=== PATIENT | female | born 1945 ===

== ENCOUNTER 2017-07-07 06:08 | Day surgery (SDC) | payer MEDICARE ==
[2017-06-17 09:39] VITALS: BMI 23.6
[2017-07-07] MEDS ORDERED: Etomidate 20 mg/10ml Inj IV ONE (07:04)
[2017-07-07] MEDS ORDERED: Propofol 10 mg/ml Inj (20 ML) ONE ×5 (07:04→09:54)
[2017-07-07] MEDS ORDERED: Dexamethasone 4 mg/1 ml ONE (07:19)
[2017-07-07] MEDS ORDERED: Bupivacaine 0.5% Inj(30mL) ONE (07:19)
[2017-07-07] MEDS ORDERED: Midazolam 2 MG/2 ML VIAL ONE (07:34)
--- NOTE | 2017-07-07 10:29 | RAD ---
PROCEDURE: Fluoroscopy less than 1 hour HISTORY: LT BUNIONECTOMY COMPARISON: TECHNIQUE: Fluoroscopy was provided in the operating room. 13 seconds of fluoro time was used. Five images were submitted showing placement of hardware at the base of the 1st metatarsal and cuneiform FINDINGS: As above IMPRESSION: As above
--- NOTE | 2017-07-07 10:38 | PCM.SURG1 ---
Surgeon's Initial Post Op Note - Surgeon's Notes Surgeon: Dr. Frank Maria Brilliandeer Looper: Trina PGy-2, Daryl PGY-1 Type of Anesthesia: IV Sedation, Local Anesthesia Administered By: Ibrahima Pre-Operative Diagnosis: left foot hallux valgus deformity, 2nd digit hammertoe deformity Operative Findings: see dictation. 2 BME matt. 2-0 vicryl, 4-0 vicryl, 4-0 nylon Post-Operative Diagnosis: same Operation Performed: left foot lapidus bunionectomy with staple fixation. left foot 2nd digit hammertoe correction Specimen/Specimens Removed: bone soft tissue Estimated Blood Loss: EBL {In ML}: 5 Blood Products Given: N/A Drains Used: No Drains Post-Op Condition: Good Date of Surgery/Procedure: 07/07/17 Time of Surgery/Procedure: 09:00
[2017-07-07] MEDS ORDERED: Oxycodone/Acetaminophen 5/325 mg Tab PO PRN ×2 (10:39)
[2017-07-07 11:00] VITALS: TEMP 98.1
[2017-07-07] MEDS ORDERED: HYDROmorphone 0.5 mg/0.5 ml ISec IVP PRN ×2 (11:09→11:15)
[2017-07-07] MEDS ORDERED: Lactated Ringer's 1,000 ML IV SCH (11:15)
--- NOTE | 2017-07-07 11:53 | RAD ---
PROCEDURE: Left Foot Radiographs. HISTORY: s/p left foot surgery COMPARISON: None. FINDINGS: BONES: The film was obtained through plaster cast. There is a pin running longitudinally through the 2nd toe. Hardware is seen at the base of the 1st metatarsal and cuneiform JOINTS: Normal. SOFT TISSUES: Normal. OTHER FINDINGS: None. IMPRESSION: Postop changes with no complicating factors.
[2017-07-07 12:20] VITALS: BP 165/66; PULSE 64; RESP 18; O2SAT 95
--- NOTE | 2017-07-08 05:01 | OP ---
PROCEDURE DATE: 07/07/2017 PREOPERATIVE DIAGNOSES: 1. Left foot hallux valgus deformity. 2. Left foot second digit hammer toe deformity. POSTOPERATIVE DIAGNOSES: 1. Left foot hallux valgus deformity. 2. Left foot second digit hammer toe deformity. PROCEDURE: 1. Left foot Lapidus first metatarsal-cuneiform arthrodesis with the use of staple fixation. 2. Left foot surgical treatment of hammer toe deformity of second digit with K-wire fixation, and tenotomy and capsulotomy of the second metatarsophalangeal joint. SURGEON: Frank Maria DPM SWITCH MAKER: Brianne Mena DPM, PGY-2, Sushil Brito DPM, PGY-1. ANESTHESIA ADMINISTERED BY: Raul Alexandra MD. TYPE OF ANESTHESIA: IV sedation with local. INDICATION: The patient is a 71-year-old female with the above mentioned diagnoses. The patient has exhausted multiple forms of conservative treatment at this time and now requested surgical intervention. The patient signed the consent after careful explanation of risks, benefits, complications, and alternatives for surgical procedure. No guarantees were given nor implied. PREPARATION: The patient was brought in to the operating room and placed on the operating room table in a supine position. Time-out was performed for identification of the correct patient and procedure. The patient received a total of 20 mL of 0.5% Marcaine plain in a local block type fashion to the left foot. Once local anesthesia was achieved, the left foot was then prepped and draped in normal sterile manner and the procedure begun. PROCEDURE #1: Attention was directed to the dorsal aspect of the first metatarsal head of the left foot, where an approximately 9 cm linear longitudinal incision was made medial and parallel to the tendon of the extensor hallucis longus involving the contour of the deformity, just proximal to metatarsocuneiform joint, and extended just distal to the base of the proximal phalanx. The incision was deepened through the subcutaneous tissue, with care being taken to identify and retract all vital neurovascular structures. All bleeders were cauterized and ligated as necessary. Attention was then directed to the first interspace at the original incision where the tendon of the extensor hallucis brevis was identified and tenectomized. Dissection was continued deep using blunt dissection down to the level of sesamoid, which was freed of its soft tissue attachments proximally, laterally, and distally. The conjoint tendon of the adductor hallucis muscle was then identified and transected at its attachments to the base of the proximal phalanx of the hallux. At this time, the lateral contracture present on the hallux was noted to be reduced and the sesamoid apparatus was noted in a more corrected medial position. At this time, a linear capsulotomy was performed over the dorsal aspect of the first metatarsophalangeal joint. The periosteal and capillary structures were then carefully dissected free of their osseous attachments and reflected medially and laterally thus exposing the head of the first metatarsal into the operative site. Next, using a sagittal saw, the medial prominence was resected and passed from the operative field and sent to pathology. At this time attention was directed more proximally to the metatarsocuneiform joint which was freed of all of its ligamentous attachments and periosteal structures and attachments. Once the base of first metatarsal was freed, a 0.062 inch K-wire was driven from dorsal to plantar on the first metatarsal and held for temporary fixation, and another 0.062 inch K-wire was driven dorsal to planar in the medial cuneiform for the temporary fixation and for the use of Hintermann retractor. Next, the metatarsocuneiform joint was distracted, and using a sagittal saw, the articular cartilage off of the base of the first metatarsal was resected and passed off of the operative field and sent to pathology. Next, the lateral aspect of the base of first metatarsal was resected using a sagittal saw and passed off of the operative field. Next, the distal articular cartilage of the medial cuneiform was resected with care to take more off laterally than medially. The joint was assessed at the time and there was no remaining articular cartilage to be noted. The incision site was then copiously irrigated with sterile normal saline. The temporary fixation was then removed and another 0.045 inch K-wire was driven from the base of the first metatarsal to the medial cuneiform for temporary compression. Next, with standard AO principles and technique, a BME Nitinol 4-prong staple was inserted medially across the joint measuring 25 mm x 20 mm, and another BME Nitinol 2-prong staple measuring 18 mm x 18 mm was inserted dorsally across the metatarsocuneiform joint to allow for compression. The joint was assessed at the time and correction was noted to be excellent. The incision site was then copiously irrigated with sterile normal saline and the subcutaneous tissue was reapproximated with 2-0 Vicryl and 4-0 Vicryl, and the skin was reapproximated with 4-0 nylon. PROCEDURE #2: Attention was then directed to the dorsal aspect of the second digit of the left foot, where a linear longitudinal incision was made overlying the proximal interphalangeal joint of the second digit. The incision was deepened through the subcutaneous tissue, care being taken to identify and retract all vital neurovascular structures. All bleeders were cauterized and ligated as necessary. At this time, a transverse tenotomy and capsulotomy was performed to the proximal interphalangeal joint of the second digit of the left foot. The head of the proximal phalanx was then freed of its capsular and ligamentous attachments. Next, utilizing a sagittal saw, the head of the proximal phalanx was resected and passed from the operative field. Next, using a rongeur, the articular cartilage off of the middle phalanx of the second digit was then resected and passed off of the operative field. The wound was then flushed with copious amounts of sterile normal saline. Next, a 0.045 inch K-wire was driven from the base of the middle phalanx and exited at the distal aspect of the second digit. The K-wire was then retrograded proximally into the remaining aspect of the proximal phalanx. Correction of the deformity was assessed at this time and noted to be excellent. Next, a tenotomy and capsulotomy of the second metatarsophalangeal joint and the extensor tendon was performed with a #15 blade. The subcutaneous tissue was then reapproximated with 4-0 Vicryl and the skin was reapproximated with 4-0 nylon. I just want to make note that in the first procedure, the temporary 0.045 inch K-wire that was inserted across the joint was then removed prior to staple fixation. A postoperative injection of 10 mL of 0.5% Marcaine plain was given in a local block type fashion to the left foot. Postoperative bandage included Betadine-soaked Adaptic, 4 x 4 gauze, [place], Kerlix, Webril, Tj and a posterior splint. POSTOPERATIVE CONDITION: The patient tolerated the anesthesia and the procedure well, and was escorted to the recovery room with vital signs stable and neurovascular status intact to the left foot. The patient will follow up with Dr. Maria in his office on an outpatient basis. Brianne Mena DPM Frank Maria DPM
== END 2017-07-07 14:40 | disposition home or self-care (01) ==
LOC: SDS 06:08
PROVIDERS: ATTEND Podiatrist
DX: M20.12 Hallux valgus (acquired), left foot (principal); M20.42 Other hammer toe(s) (acquired), left foot
CPT/HCPCS: 28285; 28297; 73630; 76000; 88304; 88311; 97116; G8978; G8979; G8980; J0131; J1100; J1170; J2001; J2250; J2405; J2704; J3010; J7120

== ENCOUNTER 2018-03-09 06:06 | Day surgery (SDC) | payer MEDICARE ==
[2018-03-01 08:32] VITALS: BMI 24.5
[2018-03-09] MEDS ORDERED: Lidocaine 1% Inj (20ml) ONE (07:31)
[2018-03-09] MEDS ORDERED: Bupivacaine 0.5% 50 ML IJ ONE (07:31)
[2018-03-09] MEDS ORDERED: Propofol 10 mg/ml Inj (20 ML) ONE (07:41)
[2018-03-09] MEDS ORDERED: Etomidate 20 mg/10ml Inj IV ONE (07:41)
[2018-03-09] MEDS ORDERED: Sevoflurane - Inhalation Anesthetic Liq (250 ml) ONE (07:54)
[2018-03-09] MEDS ORDERED: HYDROmorphone 0.5 mg/0.5 ml ISec IVP PRN (09:43)
[2018-03-09] MEDS ORDERED: Lactated Ringer's 1,000 ML IV SCH (09:45)
--- NOTE | 2018-03-09 09:45 | PCM.SURG1 ---
Surgeon's Initial Post Op Note - Surgeon's Notes Surgeon: Dr. Maria [employer] Ceo: Gaby Brito PGY2, Carl Dial PGY1 Type of Anesthesia: IV Sedation, Local (15cc 1:1 mixture 1% lidocaine & 0.5% marcaine) Anesthesia Administered By: Dr. Brush Pre-Operative Diagnosis: Left iatrogenic hallux varus Operative Findings: See operative report. Materials: Arthrex mini TightRope, 2- 0 vicryl, 4-0 vicryl, 4-0 nylon. Injectables: 10cc 1:1 mixture 1% lidocaine & 0.5% marcaine Post-Operative Diagnosis: Same Operation Performed: Left foot hallux varus repair with medial release and repair of lateral collateral ligaments with Arthrex mini TightRope Specimen/Specimens Removed: None Estimated Blood Loss: EBL {In ML}: 1 Blood Products Given: N/A Drains Used: No Drains Post-Op Condition: Good Date of Surgery/Procedure: 03/09/18 Time of Surgery/Procedure: 09:45
[2018-03-09] MEDS ORDERED: Oxycodone/Acetaminophen 5/325 mg Tab PO PRN ×2 (09:46)
[2018-03-09 10:52] VITALS: RESP 18; TEMP 98.2
[2018-03-09 12:07] VITALS: BP 122/66; PULSE 64; O2SAT 100
--- NOTE | 2018-03-10 16:36 | RAD ---
Date of service: 03/09/2018 PROCEDURE: Fluoroscopy up to 1 hr. HISTORY: LT FOOT PINNING COMPARISON: None TECHNIQUE: Standard protocol for this study/examination. FINDINGS: Total fluoroscopic time (continuous mode) utilized during the procedure 3.2 (seconds). Total exam DLP: 0.10 (mGy). IMPRESSION: Less than 1 hr fluoroscopic assistance provided during performance of the procedure.
--- NOTE | 2018-03-10 16:37 | RAD ---
Date of service: 03/09/2018 PROCEDURE: Left Foot Radiographs. HISTORY: s/p left hallux varus repair COMPARISON: 07/07/2017 FINDINGS: BONES: No evidence of orthopedic hardware failure. New hardware related to hallux valgus repair. Status post removal of Rocky wire 2nd digit JOINTS: Normal. SOFT TISSUES: Normal. OTHER FINDINGS: None. IMPRESSION: Satisfactory postoperative status.
--- NOTE | 2018-03-17 10:07 | OP ---
PROCEDURE DATE: 03/09/2018 PREOPERATIVE DIAGNOSIS: Left foot hallux varus. POSTOPERATIVE DIAGNOSIS: Left foot hallux varus. PROCEDURE PERFORMED: Left foot iatrogenic hallux varus open reduction and internal fixation with medial release and repair of lateral collateral ligament with Arthrex mini tightrope. SURGEON: Frank Maria DPM. TECHNOLOGY AND ENGINEERING TEACHER: Sushil Brito DPM, PGY-2. ANESTHESIOLOGIST: Dr. Hank Brush MD ANESTHESIA USED: IV sedation with local. INDICATIONS: Patient is a 72 year old female with the above mentioned diagnosis. Patient is being treated by Dr. Maria in his office on an outpatient basis where she has exhausted multiple forms of conservative treatment. Patient requests surgical intervention at this time. Patient signed the consent after careful explanation of risks, benefits, alternatives, and complications to procedure. Patient wishes to proceed at this time. NPO was confirmed prior to bringing patient into operating room. PREPARATION: Patient was brought into the operating room and placed on the operating room table in a supine position. Time out was performed for identification of the correct patient and procedure. After the induction of IV sedation, a total of 15cc of 1:1 mixture 1% lidocaine & 0.5% marcaine was administered in an Rodriguez block fashion to the left foot. Once local anesthesia was achieved, the left foot was prepped and draped in normal sterile manner. A sterile pneumatic ankle tourniquet was placed in a supramalleolar position to the left lower extremity, an Esmarch was used to exsanguinate the limb, the tourniquet was inflated to 250mmHg, and the procedure began. PROCEDURE: Left foot iatrogenic hallux varus open reduction and internal fixation with medial release and repair of lateral collateral ligaments with Arthrex mini tightrope. Attention was directed to the dorsal aspect of the 1st metatarsal head of the left foot where an approximately 6-cm linear longitudinal incision was made medial and parallel to the tendon of the extensor hallucis longus, involved the contour of the deformity, and followed the course of the well-healed cicatrix from a previous incision. The incision was deepened through scar tissue and subcutaneous tissues using sharp and blunt dissection. Care was taken to identify and retract all vital neurovascular structures. All bleeders were cauterized as necessary. At this time, the hallux was noted to be dorsally and medially contracted. A Z-lengthening was performed with the extensor hallucis longus tendon; following this, the hallux was noted to float into a more plantargrade position. At this time, a reverse inverted L-type capsulotomy was performed over the dorsal aspect of the 1st metatarsalphalangeal joint. The periosteal and capsular structures were then carefully dissected free of their osseous attachments and reflected medially, dorsally, and laterally thus exposing the base of the hallucal proximal phalanx and the head and neck of the 1st metatarsal in the operative site. The abductor hallucis tendon was identified and released from its insertion into the proximal phalanx and tibial sesamoid. Passive correction medial contracture was then able to be reduced. At this time, the mini tightrope guide wire was placed in the medial midline of the hallucal proximal phalanx into the first webspace, from distal medial to proximal lateral. Similarly, another guidewire was placed in the medial midline of the 1st metatarsal. Following placement of the two guidewires, the 2.7mm cannulated drill bit was used over each guidewire. The guidewires were then removed, and the miniTightRope was inserted from medial to lateral in the proximal phalanx and then from lateral to medial into the neck of the 1st metatarsal. The hallux was held in a reduced position, the sutures were pulled simultaneously to allow the oblong button to lay flat against the bone, tension was held, and the suture was tied. Correction was confirmed under fluoroscopy and noted to be in a rectus position. The wound was then flushed with copious amounts of normal saline. Periosteal and capsular structures were reapproximated and coapted using 2-0 vicryl. Redundant capsular tissues were resected as necessary. Subcutaneous tissue was reapproximated using 4-0 vicryl, and skin was reappoximated using 4-0 nylon. An intra-op injection of 10cc 1:1 mixture 1% lidocaine & 0.5% marcaine was administered in a Rodriguez block type fashion. Postoperative dressings included betadine soaked adaptic, gauze, kerlix, and an MARIO ALBERTO wrap. POSTOPERATIVE CONDITION: Patient tolerated the procedure and anesthesia well and was escorted to the recovery room with vital signs stable and neurovascular status intact to the left foot. The patient will follow up with Dr. Maria in office on an outpatient basis. Sushil Brito DPM Frank Maria DPM MTDValeriy
== END 2018-03-09 13:15 | disposition home or self-care (01) ==
LOC: SDS 06:06
PROVIDERS: ATTEND Podiatrist
DX: M20.32 Hallux varus (acquired), left foot (principal); E78.5 Hyperlipidemia, unspecified
CPT/HCPCS: 28295; 73630; C1713; J1170; J1885; J2001; J2405; J2704; J3010; J7120 ×2